=== PATIENT | male | born 2000 | race African-American/Black ===

== ENCOUNTER 2022-08-13 19:15 | Emergency (ER) | payer MEDICAID ==
[~2022-08-13] VITALS: Ht 180.3 cm; Wt 113.4 kg
[2022-08-13 19:24] VITALS: BP 135/76
[2022-08-13 19:31] VITALS: BP 136/80
[2022-08-13] MEDS ORDERED: NAPROXEN500 MG PO (20:11)
[2022-08-13 20:29] VITALS: BP 136/80
== END 2022-08-13 20:41 | disposition home or self-care (01) ==
LOC: ED 19:15
DX: S83.92XA Sprain of unspecified site of left knee, initial encounter (principal); X50.0XXA Overexertion from strenuous movement or load, initial encounter; Y93.61 Activity, american tackle football; Y92.410 Unspecified street and highway as the place of occurrence of the external cause

== ENCOUNTER 2022-12-11 08:59 | Emergency (ER) | payer MEDICAID ==
[~2022-12-11] VITALS: Ht 180.3 cm; Wt 117.9 kg
[2022-12-11] VITALS (13 sets, daily range): BP systolic 117–144; BP diastolic 87–98
[~2022-12-11 08:59] MED LIST: NAPROXEN500 MG PO
== END 2022-12-11 11:45 | disposition home or self-care (01) ==
LOC: ED 08:59
DX: R05.9 Cough, unspecified (principal); R50.9 Fever, unspecified; R11.0 Nausea; M79.10 Myalgia, unspecified site; M25.50 Pain in unspecified joint; Z20.822 Contact with and (suspected) exposure to COVID-19